=== PATIENT | female | born 1955 | race Caucasian/White ===

== ENCOUNTER 2018-07-10 06:04 | Day surgery (SDC) | payer BC ==
[~2018-07-10] VITALS: Ht 154.9 cm; Wt 69.8 kg
[2018-07-10] MEDS ORDERED: lisinopril (07:19)
[2018-07-10] MEDS ORDERED: vitamin d (07:19)
[2018-07-10] MEDS ORDERED: aspirin (07:19)
[2018-07-10] MEDS ORDERED: janumet (07:19)
[2018-07-10 07:25] VITALS: Ht 154.9 cm; Wt 69.8 kg
[2018-07-10 07:30] VITALS: BP 165/69; PULSE 56; RESP 14
[2018-07-10 08:45] VITALS: BP 136/75; PULSE 56; RESP 20
[2018-07-10] MEDS ORDERED: ONDANSETRON 4 MG INJ IV STA (08:48)
[2018-07-10] MEDS ORDERED: ONDANSETRON 4 MG INJ ONE (08:49)
[2018-07-10] MEDS ORDERED: FENTAnyl 50 MCG/ML VIAL ONE (08:54)
[2018-07-10] MEDS ORDERED: MIDAZOLAM 1 MG/ML 2 ML INJ ONE (08:54)
[2018-07-10 09:00] VITALS: BP 118/62; PULSE 51; RESP 16
== END 2018-07-10 13:57 | disposition home or self-care (01) ==
LOC: GIL 06:04
PROVIDERS: ATTEND Internal Medicine Gastroenterology
DX: K64.8 Other hemorrhoids (principal); D12.5 Benign neoplasm of sigmoid colon; I10 Essential (primary) hypertension; E11.9 Type 2 diabetes mellitus without complications
CPT/HCPCS: 43239; 45380; 82962; 88305; J2250; J2405; J3010; Z7610